=== PATIENT | female | born 1975 | race Caucasian/White ===

== ENCOUNTER 2021-02-02 12:54 | Emergency (ER) | payer OTHER, BC ==
--- NOTE | 2021-02-02 13:22 | EDM.PDOC ---
ED HPI GENERAL MEDICAL PROBLEM - General Chief Complaint: Upper Extremity Injury/Pain Stated Complaint: FINGER INJURY Time Seen by Provider: 02/02/21 13:00 Source of Information: Reports: Patient History Limitations: Reports: No Limitations - History of Present Illness INITIAL COMMENTS - FREE TEXT/NARRATIVE: Patient presented to the ED because of a left 4th finger injury. Her finger was crushed in between a visegrip. Left Finger-Ring Pain Score (Numeric/FACES): 5 - Related Data Allergies Allergy/AdvReac Type Severity Reaction Status Date / Time morphine Allergy Hives Verified 02/02/21 13:14 Home Meds: Home Meds NK [No Known Home Meds] 02/02/21 [History] Past Medical History - Infectious Disease History Infectious Disease History: Reports: None Social & Family History - Family History Family Medical History: No Pertinent Family History - Tobacco Use Tobacco Use Status *Q: Never Tobacco User - Caffeine Use Caffeine Use: Reports: Coffee, Soda - Recreational Drug Use Recreational Drug Use: No Review of Systems - Review of Systems Review Of Systems: See Below Constitutional: Reports: No Symptoms Eyes: Reports: No Symptoms Ears: Reports: No Symptoms Nose: Reports: No Symptoms Mouth/Throat: Reports: No Symptoms Respiratory: Reports: No Symptoms Cardiovascular: Reports: No Symptoms GI/Abdominal: Reports: No Symptoms Genitourinary: Reports: No Symptoms Musculoskeletal: Reports: No Symptoms Skin: Reports: Wound Neurological: Reports: No Symptoms Psychiatric: Reports: No Symptoms ED EXAM, GENERAL - Physical Exam Exam: See Below Exam Limited By: No Limitations General Appearance: Alert, No Apparent Distress Eye Exam: Bilateral Eye: Proptosis Ears: Normal External Exam, Normal Canal Nose: Normal Inspection, Normal Mucosa, No Blood Throat/Mouth: Normal Inspection, Normal Lips, Normal Teeth, Normal Gums Head: Atraumatic, Normocephalic Neck: Normal Inspection, Supple, Non-Tender, Full Range of Motion Respiratory/Chest: No Respiratory Distress, Lungs Clear, Normal Breath Sounds, No Accessory Muscle Use, Chest Non-Tender Cardiovascular: Normal Peripheral Pulses, Regular Rate, Rhythm, No Edema, No Gallop, No JVD, No Murmur, No Rub GI/Abdominal: Normal Bowel Sounds, Soft, Non-Tender, No Organomegaly Back Exam: Normal Inspection, Full Range of Motion Extremities: Normal Inspection, Normal Range of Motion, Non-Tender Neurological: Alert, Oriented, CN II-XII Intact, Normal Cognition Psychiatric: Normal Affect Skin Exam: Warm, Other (bruisng left 4th finger) Course - Vital Signs Text/Narrative:: Xray left 4th finger-negative Last Recorded V/S: Last Vital Signs Temp 37.1 C 02/02/21 12:54 Pulse 76 02/02/21 12:54 Resp 20 02/02/21 12:54 BP 119/81 02/02/21 12:54 Pulse Ox 99 02/02/21 12:54 Departure - Departure Time of Disposition: 13:40 Disposition: Home, Self-Care 01 Condition: Good Clinical Impression: Finger injury - Discharge Information Instructions: Contusion, [id number] Referrals: Bri Rutledge PA-C [Primary Care Provider] - Forms: ED Department Discharge Additional Instructions: Please read discharge instructions on finger injury and contusion Apply ice Take ibuprofen 800 mg with tylenol 1000 mg every 8 hours as needed for pain Follow up as needed Sepsis Event Note (ED) - Evaluation Sepsis Screening Result: No Definite Risk - Focused Exam Vital Signs: Vital Signs Temp Pulse Resp BP Pulse Ox 02/02/21 12:54 37.1 C 76 20 119/81 99
--- NOTE | 2021-02-02 17:03 | CR ---
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 FINDINGS: Three views of the left hand were obtained 02/02/21 - no comparisons. There is evidence of soft tissue injury at the tip of the fourth digit. No acute fracture, dislocation or other significant bone or joint abnormality was identified. [facility]
== END 2021-02-02 14:04 | disposition home or self-care (01) ==
LOC: FB.ED 12:54
DX: S60.042A Contusion of left ring finger without damage to nail, initial encounter (principal); Z88.5 Allergy status to narcotic agent; W23.0XXA Caught, crushed, jammed, or pinched between moving objects, initial encounter
CPT/HCPCS: 73130-LT; 99000; 99283-25